=== PATIENT | male | born 1965 | race Caucasian/White ===

== ENCOUNTER 2017-03-07 18:12 | Emergency (ER) | payer BC ==
[2017-03-07 19:48] VITALS: BP 120/90
--- NOTE | 2017-03-07 20:12 | UC ---
Shoulder Pain HPI - HPI Summary HPI Summary: Slipped and fell hitting right upper back, over the scapula, on the edge of concrete. - History of Current Complaint Chief Complaint: UCUpperExtremity Stated Complaint: RIGHT SHOULDER PAIN (FALL) Time Seen by Provider: 03/07/17 20:00 Hx Obtained From: Patient Onset/Duration: Sudden Onset - fell about 1500, Still Present Severity Initially: Severe Severity Currently: Moderate Location Of Pain: Is Discrete @ - over the scapula Pain Intensity: 2 Character: Dull, Aching Aggravating Factor(s): Movement Alleviating Factor(s): Elevation - when reclining Associated Signs And Symptoms: Negative: Fever, Weakness, Numbness/Tingling Related History: Dominant Hand Right - Allergies/Home Medications Allergies/Adverse Reactions: Allergies Allergy/AdvReac Type Severity Reaction Status Date / Time No Known Allergies Allergy Verified 03/07/17 19:44 Home Medications: Home Medications NK [No Home Medications Reported] 03/07/17 [History Confirmed 03/07/17] PMH/Surg Hx/FS Hx/Imm Hx - Surgical History Surgical History: None - Family History Known Family History: Positive: Diabetes - Social History Occupation: Employed Full-time Lives: With Family - with GF Alcohol Use: None Substance Use Type: None Smoking Status (MU): Never Smoked Tobacco Review of Systems Skin: Bruising Musculoskeletal: Myalgia All Other Systems Reviewed And Are Negative: Yes Physical Exam Triage Information Reviewed: Yes Appearance: Well-Appearing, No Pain Distress, Well-Nourished Vital Signs: Initial Vital Signs Temp 98.2 F 03/07/17 19:45 Pulse 87 03/07/17 19:45 Resp 16 03/07/17 19:45 BP 120/90 03/07/17 19:45 Pulse Ox 100 03/07/17 19:45 Vital Signs Reviewed: Yes Eyes: Positive: Conjunctiva Clear Neck exam: Normal Respiratory Exam: Normal Cardiovascular Exam: Normal Musculoskeletal: Positive: Strength Limited @ - right shoulder external rotation and internal rotation and abduction., ROM Limited @ - Right shoulder abduction. Neurological Exam: Normal Psychological Exam: Normal Skin: Positive: Other - Abrasion over the right upper back over the caudal scapula and rhomboid Shoulder Course/Dx - Differential Dx/Diagnosis Differential Diagnosis/HQI/PQRI: AC Separation, Contusion, Dislocation Provider Diagnoses: Contusion right thorax. Discharge - Discharge Plan Condition: Stable Disposition: HOME Patient Education Materials: Contusion in Adults (ED) Additional Instructions: You may have a non-displaced fracture. If pain persists or gets worse, you may want to have it rechecked.
--- NOTE | 2017-03-07 20:34 | RAD ---
HISTORY: Right scapula, trauma, pain COMPARISONS: None VIEWS: 2, Frontal and lateral views of the right scapula FINDINGS: BONE DENSITY: Normal. BONES: There is no displaced fracture. JOINTS: There is mild osteoarthritis of the AC joint. ALIGNMENT: There is no dislocation. SOFT TISSUES: Unremarkable. OTHER FINDINGS: None. IMPRESSION: NO ACUTE OSSEOUS INJURY. IF SYMPTOMS PERSIST, RECOMMEND REPEAT IMAGING.
== END 2017-03-07 20:54 | disposition home or self-care (01) ==
LOC: UCCORT 18:12
DX: S20.221A Contusion of right back wall of thorax, initial encounter (principal); S20.411A Abrasion of right back wall of thorax, initial encounter; W01.0XXA Fall on same level from slipping, tripping and stumbling without subsequent striking against object, initial encounter; Y93.9 Activity, unspecified; Y92.9 Unspecified place or not applicable
CPT/HCPCS: 99201; G0463